=== PATIENT | female | born 1965 | race Caucasian/White ===

== ENCOUNTER 2022-05-21 16:07 | Inpatient (IN) | payer BC, MEDICAID ==
[2022-05-21] MEDS ORDERED: Sodium Chloride 0.9% 10 ML Syringe FLUSH PRN (16:17)
[2022-05-21] MEDS ORDERED: MVI, Adult with Vitamin K 10 ML in Sodium Chloride 0.9% 1,000 ML IV ONE ×2 (16:24)
[2022-05-21] MEDS ORDERED: Pantoprazole 40 MG Vial IVPUSH SCH (16:30)
[2022-05-21] MEDS ORDERED: Thiamine 100 MG in Sodium Chloride 0.9% 100 ML IV SCH (16:30)
[2022-05-21] MEDS ORDERED: Folic Acid 50 MG/10 ML MDV IV SCH (16:30)
[2022-05-21] MEDS ORDERED: Piperacillin/Tazobactam 3.375 GM in Sodium Chloride 0.9% 50 ML IV ONE (17:00)
[2022-05-21] MEDS ORDERED: Lidocaine 1% with EPINEPHrine 1:100,000 50 ML MDV ONE (17:28)
[2022-05-21] MEDS ORDERED: Bupivacaine 0.5% 50 ML MDV ONE (17:28)
[2022-05-21] MEDS ORDERED: fentaNYL 100 MCG/2 ML SDV ONE ×2 (17:34→22:07)
[2022-05-21] MEDS ORDERED: Midazolam 1 MG/ML 2 ML SDV ONE (17:35)
[2022-05-21] MEDS ORDERED: Ondansetron 4 MG/2 ML SDV ONE (17:37)
[2022-05-21] MEDS ORDERED: Propofol 200 MG/20 ML SDV ONE (17:37)
[2022-05-21] MEDS ORDERED: Dexamethasone 4 MG/ML SDV ONE (17:37)
[2022-05-21] MEDS ORDERED: Rocuronium 50 MG/5 ML Vial ONE (17:37)
[2022-05-21] MEDS ORDERED: Succinylcholine 200 MG/10 ML MDV ONE (17:37)
[2022-05-21] MEDS ORDERED: Lidocaine 2% 5 ML SDV ONE (17:38)
[2022-05-21 17:42] LABS: ESTIMATED GFR 53 mL/min (>60)
[2022-05-21] MEDS: Lactated Ringers 1,000 ML IV SCH (17:51)
[2022-05-21 18:17] LABS: VITAMIN D,25-HYDROXY 111.1 ng/mL (30-100)
[2022-05-21] MEDS ORDERED: Phenylephrine 1% 10 MG/ML SDV ONE (19:18)
[2022-05-21] MEDS ORDERED: Meropenem 500 MG SDV ONE (21:09)
[2022-05-21] MEDS ORDERED: Neostigmine Methylsulfate 1 MG/ML 5 ML Syringe ONE (21:23)
[2022-05-21] MEDS ORDERED: Glycopyrrolate 0.2 MG/ML 5 ML MDV ONE (21:23)
[2022-05-21] MEDS ORDERED: Naloxone 0.4 MG/ML SDV IVPUSH PRN (22:33)
[2022-05-21] MEDS: HYDROmorphone/Normal Saline 6 MG/30 ML PCA Vial IV PRN (23:42)
[2022-05-21 23:53] LABS: ESTIMATED GFR 53 mL/min (>60)
[2022-05-22] MEDS: Metoprolol Tartrate 5 MG/5 ML SDV IVPUSH SCH ×4 (00:13→17:46)
[2022-05-22] MEDS ORDERED: Sodium Chloride 0.9% 50 ML ONE (00:27)
[2022-05-22] MEDS ORDERED: Magnesium Sulfate/Water 2 GM in Premix Bag 1 BAG IV ONE (00:28)
[2022-05-22] MEDS ORDERED: Lactated Ringers 500 ML IV SCH (00:30)
[2022-05-22] MEDS: Potassium Chloride 100 ML IV SCH ×2 (00:51→01:56)
[2022-05-22] MEDS: Lactated Ringers 1,000 ML IV SCH (00:53)
[2022-05-22] MEDS ORDERED: Potassium Chloride 10 MEQ in Premix Bag 2 BAG IV SCH (01:00)
[2022-05-22] MEDS ORDERED: Piperacillin/Tazobactam 3.375 GM in Sodium Chloride 0.9% 50 ML IV SCH (01:00)
[2022-05-22] MEDS: Piperacillin/Tazobactam/Dext 3.375 GM in Premix Bag 1 BAG IV SCH ×3 (07:47→20:44)
[2022-05-22] MEDS ORDERED: Sodium Ferric Gluconate Cmplex 125 MG in Sodium Chloride 0.9% 100 ML IV SCH (09:00)
[2022-05-22] MEDS ORDERED: Sodium Chloride 0.9% 50 ML IV ONE (10:09)
[2022-05-22] MEDS ORDERED: Iopamidol 612 MG/ML 100 ML Bottle IV PRN (10:09)
[2022-05-22] MEDS: Enoxaparin 40 MG/0.4 ML Syringe SUBCUT SCH (11:31)
[2022-05-22] MEDS: Sodium Ferric Gluconate Cmplex 125 MG in Sodium Chloride 0.9% 100 ML IV SCH (12:05)
[2022-05-22] MEDS ORDERED: Lactated Ringers 1,000 ML IV ONE (14:34)
[2022-05-22] MEDS: HYDROmorphone/Normal Saline 6 MG/30 ML PCA Vial IV PRN (15:07)
[2022-05-22] MEDS: Acetaminophen 500 MG Tab PO SCH ×2 (15:16→21:32)
[2022-05-22] MEDS: hydrOXYzine HCl 25 MG Tab PO PRN ×2 (15:17→21:32)
[2022-05-22] MEDS ORDERED: MVI, Adult with Vitamin K 10 ML, Folic Acid 1 MG, Thiamine 100 MG in Lactated Ringers 1... IV SCH ×4 (16:00)
[2022-05-22] MEDS ORDERED: Pantoprazole 40 MG Vial IVPUSH SCH (20:00)
[2022-05-23] MEDS: Metoprolol Tartrate 5 MG/5 ML SDV IVPUSH SCH ×3 (00:13→13:55)
[2022-05-23] MEDS: Lactated Ringers 1,000 ML IV SCH (01:41)
[2022-05-23] MEDS: Piperacillin/Tazobactam/Dext 3.375 GM in Premix Bag 1 BAG IV SCH ×4 (02:30→20:15)
[2022-05-23] MEDS: Acetaminophen 500 MG Tab PO SCH ×3 (06:09→22:09)
[2022-05-23] MEDS ORDERED: HYDROmorphone 0.5 MG/0.5 ML Syringe IVPUSH PRN (08:30)
[2022-05-23] MEDS ORDERED: Potassium Chloride 10 MEQ in Premix Bag 1 BAG IV SCH (09:00)
[2022-05-23] MEDS: Dextrose 5%-Lact Ringers w/KCl 1,000 ML IV SCH (09:36)
[2022-05-23] MEDS: Nystatin Topical Powder 15 GM Bottle TOP SCH ×3 (09:43→20:24)
[2022-05-23] MEDS: oxyCODONE 5 MG Tab PO PRN ×3 (09:47→20:23)
[2022-05-23] MEDS: Sodium Ferric Gluconate Cmplex 125 MG in Sodium Chloride 0.9% 100 ML IV SCH (11:10)
[2022-05-23] MEDS: Enoxaparin 40 MG/0.4 ML Syringe SUBCUT SCH (11:15)
[2022-05-23] MEDS ORDERED: LIDOCAINE 1% IV SCH ×2 (13:15→13:17)
[2022-05-23] MEDS ORDERED: POTASSIUM ACETATE IV SCH (13:15)
[2022-05-23] MEDS ORDERED: SODIUM CHLORIDE 0.9% IV SCH ×2 (13:15→13:17)
[2022-05-23] MEDS ORDERED: POTASSIUM CHLORIDE IV SCH (13:17)
[2022-05-23] MEDS: LIDOCAINE 1% IV SCH ×3 (13:30→17:52)
[2022-05-23] MEDS: POTASSIUM CHLORIDE IV SCH ×3 (13:30→17:52)
[2022-05-23] MEDS: SODIUM CHLORIDE 0.9% IV SCH ×3 (13:30→17:52)
[2022-05-23] MEDS ORDERED: Venlafaxine 75 MG Tab PO SCH (16:00)
[2022-05-23] MEDS: Metoprolol Tartrate 25 MG Tab PO SCH (17:03)
[2022-05-23] MEDS: THIAMINE IV SCH ×4 (17:03)
[2022-05-23] MEDS: [UNRECOGNIZED DRUG - OTHER] IV SCH ×4 (17:03)
[2022-05-23] MEDS: MVI IV SCH ×4 (17:03)
[2022-05-23] MEDS: VITAMIN K IV SCH ×4 (17:03)
[2022-05-23] MEDS: FOLIC ACID IV SCH ×4 (17:03)
[2022-05-23] MEDS ORDERED: Cyclobenzaprine 10 MG Tab PO PRN (17:23)
[2022-05-23] MEDS: hydrOXYzine HCl 25 MG Tab PO PRN (20:23)
[2022-05-23] MEDS: Venlafaxine 75 MG Tab PO SCH (20:23)
[2022-05-24] MEDS: Piperacillin/Tazobactam/Dext 3.375 GM in Premix Bag 1 BAG IV SCH ×3 (01:42→14:46)
[2022-05-24] MEDS: Dextrose 5%-Lact Ringers w/KCl 1,000 ML IV SCH (01:45)
[2022-05-24] MEDS: Metoprolol Tartrate 25 MG Tab PO SCH ×2 (04:03→16:19)
[2022-05-24] MEDS: oxyCODONE 5 MG Tab PO PRN ×4 (04:06→21:05)
[2022-05-24] MEDS: Acetaminophen 500 MG Tab PO SCH ×3 (05:47→21:07)
[2022-05-24] MEDS ORDERED: Pantoprazole 40 MG Delayed-Release Granules 1 Packet PO SCH (07:30)
[2022-05-24] MEDS: Pantoprazole 40 MG Tab.CR PO SCH (07:31)
[2022-05-24] MEDS ORDERED: Sodium Phosphate 15 mMole/5 ML SDV IV ONE (08:35)
[2022-05-24] MEDS: Venlafaxine 75 MG Tab PO SCH ×2 (08:47→21:07)
[2022-05-24] MEDS: Nystatin Topical Powder 15 GM Bottle TOP SCH ×3 (08:48→21:07)
[2022-05-24] MEDS ORDERED: Sodium Ferric Gluconate Cmplex 125 MG in Sodium Chloride 0.9% 100 ML IV SCH (09:00)
[2022-05-24] MEDS ORDERED: Sodium Phosphate 30 MMOLE in Sodium Chloride 0.9% 250 ML IV ONE (10:00)
[2022-05-24] MEDS: Enoxaparin 40 MG/0.4 ML Syringe SUBCUT SCH (10:23)
[2022-05-24] MEDS: [UNRECOGNIZED DRUG - OTHER] IV SCH ×4 (15:19)
[2022-05-24] MEDS: FOLIC ACID IV SCH ×4 (15:19)
[2022-05-24] MEDS: VITAMIN K IV SCH ×4 (15:19)
[2022-05-24] MEDS: THIAMINE IV SCH ×4 (15:19)
[2022-05-24] MEDS: MVI IV SCH ×4 (15:19)
[2022-05-24] MEDS: hydrOXYzine HCl 25 MG Tab PO PRN (21:05)
[2022-05-25] MEDS: oxyCODONE 5 MG Tab PO PRN ×4 (04:16→19:25)
[2022-05-25] MEDS: Metoprolol Tartrate 25 MG Tab PO SCH ×2 (04:17→21:12)
[2022-05-25] MEDS: Acetaminophen 500 MG Tab PO SCH ×3 (06:25→21:13)
[2022-05-25] MEDS ORDERED: Bisacodyl 10 MG Supp RECTAL PRN (07:22)
[2022-05-25] MEDS: Pantoprazole 40 MG Tab.CR PO SCH (08:06)
[2022-05-25] MEDS: Venlafaxine 75 MG Tab PO SCH ×2 (09:24→21:12)
[2022-05-25] MEDS: Nystatin Topical Powder 15 GM Bottle TOP SCH ×3 (09:25→21:13)
[2022-05-25] MEDS: Enoxaparin 40 MG/0.4 ML Syringe SUBCUT SCH (11:59)
[2022-05-25] MEDS ORDERED: Magnesium Oxide 400 MG Tab PO ONE (15:00)
[2022-05-25] MEDS: hydrOXYzine HCl 25 MG Tab PO PRN (21:12)
[2022-05-26] MEDS: oxyCODONE 5 MG Tab PO PRN ×2 (00:02→07:21)
[2022-05-26] MEDS: Pantoprazole 40 MG Tab.CR PO SCH (07:21)
[2022-05-26] MEDS: Acetaminophen 500 MG Tab PO SCH (07:21)
[2022-05-26] MEDS: Metoprolol Tartrate 25 MG Tab PO SCH (09:30)
[2022-05-26] MEDS: hydrOXYzine HCl 25 MG Tab PO PRN (09:30)
[2022-05-26] MEDS: Nystatin Topical Powder 15 GM Bottle TOP SCH (09:31)
[2022-05-26] MEDS: Venlafaxine 75 MG Tab PO SCH (09:31)
[2022-05-28 22:07] LABS: VITAMIN E(GAMMA TOCOPHEROL) 1.4 mg/L (0.5-5.5)
== END 2022-05-26 10:00 | disposition home or self-care (01) | DRG 336 ==
LOC: JP.SDS 16:07 → JP.MS 16:18
PROVIDERS: ADMIT Student in an Organized Health Care Education/Training Program; ATTEND Student in an Organized Health Care Education/Training Program
PROC: 0DN80ZZ Release Small Intestine, Open Approach (ICD-10-PCS; principal; 2022-05-21)
PROC: 0DJ08ZZ Inspection of Upper Intestinal Tract, Via Natural or Artificial Opening Endoscopic (ICD-10-PCS; 2022-05-21)
DX: K46.9 Unspecified abdominal hernia without obstruction or gangrene (principal); E87.20 Acidosis, unspecified; K66.0 Peritoneal adhesions (postprocedural) (postinfection); F41.1 Generalized anxiety disorder; I10 Essential (primary) hypertension; Z98.84 Bariatric surgery status; Z98.890 Other specified postprocedural states; Z90.49 Acquired absence of other specified parts of digestive tract; Z90.89 Acquired absence of other organs
CPT/HCPCS: 36415; 74177; 80048; 80053; 82306; 82607; 83550; 83605; 83735; 84075; 84100; 84207; 84425; 84446; 84590; 85025; 85027; A9270-GY; C9113; J0330; J1100; J1170; J1650; J2185; J2250; J2370; J2405; J2543; J2704; J2710; J2916; J3010; J3411; J3475; J3480; J3490; J7030; J7050; J7120; Q9967

== ENCOUNTER 2022-06-13 07:00 | Inpatient (IN) | payer MEDICAID ==
[~2022-06-13 07:00] MED LIST: Bupivacaine 0.5%/EPINEPHrine 1:200,000 50 ML MDV ONE
[2022-06-13 07:44] LABS: ESTIMATED GFR 35 mL/min (>60)
[2022-06-13] MEDS ORDERED: Acetaminophen 500 MG Tab PO ONE (07:45)
[2022-06-13] MEDS ORDERED: fentaNYL 250 MCG/5 ML SDV ONE ×2 (08:05→10:08)
[2022-06-13] MEDS ORDERED: Glycopyrrolate 0.2 MG/ML 5 ML MDV ONE (08:09)
[2022-06-13] MEDS ORDERED: Propofol 200 MG/20 ML SDV ONE (08:09)
[2022-06-13] MEDS ORDERED: Neostigmine Methylsulfate 1 MG/ML 5 ML Syringe ONE (08:09)
[2022-06-13] MEDS ORDERED: Succinylcholine 200 MG/10 ML MDV ONE (08:09)
[2022-06-13] MEDS ORDERED: Dexamethasone 4 MG/ML SDV ONE (08:09)
[2022-06-13] MEDS ORDERED: Ondansetron 4 MG/2 ML SDV ONE (08:09)
[2022-06-13] MEDS ORDERED: Rocuronium 50 MG/5 ML Vial ONE (08:09)
[2022-06-13] MEDS ORDERED: Lactated Ringers 1,000 ML IV SCH ×2 (08:30→13:00)
[2022-06-13] MEDS ORDERED: Heparin Sodium 5,000 Units/ML Vial SUBCUT ONE (08:30)
[2022-06-13] MEDS ORDERED: Meropenem 500 MG SDV ONE (09:15)
[2022-06-13] MEDS ORDERED: Clindamycin Phosphate in D5W 900 MG in Premix Bag 1 BAG IV ONE ×2 (09:30)
[2022-06-13] MEDS ORDERED: Lidocaine 1% 2 ML ONE (09:47)
[2022-06-13] MEDS ORDERED: Labetalol 20 MG/4 ML Syringe ONE (10:35)
[2022-06-13] MEDS ORDERED: Ondansetron 4 MG/2 ML SDV IVPUSH PRN (10:57)
[2022-06-13] MEDS ORDERED: Albuterol 90 MCG/6.7 GM Inhaler INH PRN (11:07)
[2022-06-13] MEDS: oxyCODONE 5 MG Tab PO PRN ×2 (11:56→20:11)
[2022-06-13] MEDS ORDERED: MVI, Adult with Vitamin K 10 ML in Sodium Chloride 0.9% 1,000 ML IV ONE ×2 (12:30)
[2022-06-13] MEDS: Folic Acid 1 MG Tab PO SCH (13:15)
[2022-06-13] MEDS: Acetaminophen 500 MG Tab PO SCH ×2 (13:15→21:45)
[2022-06-13] MEDS: Venlafaxine 75 MG Tab PO SCH (21:45)
[2022-06-13] MEDS: Sulfamethoxazole/Trimethoprim 800-160 MG Tab PO SCH (21:45)
[2022-06-13] MEDS: Thiamine 100 MG Tab PO SCH (21:45)
[2022-06-13] MEDS: Enoxaparin 40 MG/0.4 ML Syringe SUBCUT SCH (21:58)
[2022-06-14] MEDS: oxyCODONE 5 MG Tab PO PRN ×2 (01:24→21:04)
[2022-06-14] MEDS: Acetaminophen 500 MG Tab PO SCH ×3 (05:17→22:04)
[2022-06-14 06:30] LABS: ESTIMATED GFR 53 mL/min (>60)
[2022-06-14] MEDS ORDERED: Lactated Ringers 1,000 ML IV ONE (07:14)
[2022-06-14] MEDS: Potassium Chloride 10 MEQ in Premix Bag 1 BAG IV SCH ×5 (07:26→15:44)
[2022-06-14] MEDS: Magnesium Sulfate/Water 2 GM in Premix Bag 1 BAG IV ONE ×2 (07:26→09:42)
[2022-06-14] MEDS: Metoprolol Tartrate 25 MG Tab PO SCH ×2 (08:41→20:13)
[2022-06-14] MEDS: Venlafaxine 75 MG Tab PO SCH ×2 (08:41→20:13)
[2022-06-14] MEDS: Folic Acid 1 MG Tab PO SCH (08:42)
[2022-06-14] MEDS: Sulfamethoxazole/Trimethoprim 800-160 MG Tab PO SCH ×2 (08:42→20:13)
[2022-06-14] MEDS: hydrOXYzine HCl 25 MG Tab PO PRN ×2 (10:53→21:04)
[2022-06-14] MEDS: Sodium Chloride 0.9% 1,000 ML IV SCH (13:43)
[2022-06-14] MEDS: Thiamine 100 MG Tab PO SCH (20:13)
[2022-06-14] MEDS: Enoxaparin 40 MG/0.4 ML Syringe SUBCUT SCH (20:13)
[2022-06-15] MEDS: Sodium Chloride 0.9% 1,000 ML IV SCH (02:33)
[2022-06-15] MEDS: Acetaminophen 500 MG Tab PO SCH ×2 (05:48→13:47)
[2022-06-15 06:54] LABS: ESTIMATED GFR 75 mL/min (>60)
[2022-06-15] MEDS: Metoprolol Tartrate 25 MG Tab PO SCH (07:44)
[2022-06-15] MEDS: Sulfamethoxazole/Trimethoprim 800-160 MG Tab PO SCH (08:25)
[2022-06-15] MEDS: Folic Acid 1 MG Tab PO SCH (08:25)
[2022-06-15] MEDS: Venlafaxine 75 MG Tab PO SCH (08:25)
[2022-06-15] MEDS ORDERED: Sodium Phosphate 15 mMole/5 ML SDV IV ONE (08:40)
[2022-06-15] MEDS: oxyCODONE 5 MG Tab PO PRN ×2 (08:56→15:56)
[2022-06-15] MEDS: hydrOXYzine HCl 25 MG Tab PO PRN ×2 (08:57→15:56)
[2022-06-15] MEDS ORDERED: Fluconazole 150 MG Tab PO ONE (11:00)
== END 2022-06-15 16:32 | disposition home or self-care (01) | DRG 902 ==
LOC: JP.SDS 07:00 → JP.MS 07:01 → EDSTATUS 10:30 → JP.2SS 10:57
PROVIDERS: ADMIT Student in an Organized Health Care Education/Training Program; ATTEND Student in an Organized Health Care Education/Training Program
PROC: 0JB80ZZ Excision of Abdomen Subcutaneous Tissue and Fascia, Open Approach (ICD-10-PCS; principal; 2022-06-13)
DX: T85.9XXA Unspecified complication of internal prosthetic device, implant and graft, initial encounter (principal); E44.0 Moderate protein-calorie malnutrition; N17.9 Acute kidney failure, unspecified; I10 Essential (primary) hypertension; E66.9 Obesity, unspecified; F41.1 Generalized anxiety disorder; Z90.49 Acquired absence of other specified parts of digestive tract; Z22.322 Carrier or suspected carrier of Methicillin resistant Staphylococcus aureus; Z79.899 Other long term (current) drug therapy; Z88.5 Allergy status to narcotic agent; Z68.34 Body mass index [BMI] 34.0-34.9, adult
CPT/HCPCS: 36415; 80048; 80053; 83735; 84100; 85027; 97605; A9270-GY; J0330; J1100; J1644; J1650; J2020; J2185; J2405; J2704; J2710; J3010; J3475; J3480; J3490; J7030; J7120

== ENCOUNTER 2023-01-25 00:46 | Inpatient (IN) | payer MEDICAID ==
[2023-01-25] MEDS: Dextrose 5%-Lactated Ringers 1,000 ML IV SCH ×3 (01:30→21:33)
[2023-01-25] MEDS: Acetaminophen 325 MG Tab PO PRN ×3 (02:52→23:42)
[2023-01-25] MEDS ORDERED: Fluticasone NASAL Spray 16 GM Bottle NASBOTH PRN (07:27)
[2023-01-25] MEDS ORDERED: Albuterol 6.7 GM Inhaler INH PRN (07:37)
[2023-01-25] MEDS ORDERED: Nystatin Topical Powder 15 GM Bottle TOP PRN (07:38)
[2023-01-25 07:56] LABS: BASOPHILS PERCENT AUTO 0.4 % (0.1-1.3); EOSINOPHILS ABSOLUTE AUTO 0.15 K/uL (0.00-0.40); EOSINOPHILS PERCENT AUTO 3.1 % (0.0-5.4); HEMATOCRIT 40.1 % (34.3-46.0); HEMOGLOBIN 13.9 g/dL (11.2-15.5); IMMATURE GRAN PERCENT AUTO 0.2 % (0.0-0.7); LYMPHOCYTES ABSOLUTE AUTO 0.73 K/uL (0.8-3.3); LYMPHOCYTES PERCENT AUTO 14.9 % (11.4-47.7); MEAN CORPUSCULAR HEMOGLOBIN 34.8 pg (31.6-35.5); MEAN CORPUSCULAR HGB CONC 34.7 g/dL (31.6-35.5); MEAN CORPUSCULAR VOLUME 100.3 fL (81.4-99.0); MONOCYTES PERCENT AUTO 6.1 % (3.3-12.6); NEUTROPHILS ABSOLUTE AUTO 3.69 K/uL (1.0-7.6); NEUTROPHILS PERCENT AUTO 75.3 % (40.0-78.1); PLATELET COUNT,PLT 126 K/uL (130-375); WHITE BLOOD CELL COUNT,WBC 4.9 K/uL (3.2-11.0)
[2023-01-25 08:07] LABS: BASOPHILS ABSOLUTE AUTO 0.02 K/uL (0.00-0.10); IMMATURE GRAN ABSOLUTE AUTO 0.01 K/uL (0.00-0.23)
[2023-01-25] MEDS: Linezolid 600 MG in Premix Bag 1 BAG IV SCH ×2 (08:18→21:40)
[2023-01-25] MEDS: Cetirizine 10 MG Tab PO SCH (08:22)
[2023-01-25] MEDS: Metoprolol Tartrate 25 MG Tab PO SCH ×2 (08:22→21:37)
[2023-01-25] MEDS: Folic Acid 1 MG Tab PO SCH (08:22)
[2023-01-25] MEDS: Venlafaxine 75 MG Tab PO SCH ×2 (08:22→21:37)
[2023-01-25] MEDS: Losartan 50 MG Tab PO SCH (08:22)
[2023-01-25] MEDS: Hydrochlorothiazide 12.5 MG Cap PO SCH (08:22)
[2023-01-25] MEDS: Potassium Chloride 10 MEQ Cap.ER PO SCH (08:23)
[2023-01-25] MEDS ORDERED: MVI, Adult with Vitamin K 10 ML, Thiamine 200 MG, Zinc/Copper/Manganese/Selenium 1 ML i... IV ONE ×4 (09:00)
[2023-01-25 09:26] LABS: ALANINE AMINOTRANSFERASE,ALT 38 U/L (12-78); ALBUMIN 2.7 g/dL (3.4-5.0); ALKALINE PHOSPHATASE 119 U/L (46-116); ANION GAP 14.9 mmol/L (5.0-14.0); ASPARTATE AMNIOTRANSFERASE,AST 50 U/L (15-37); BILIRUBIN TOTAL 0.6 mg/dL (0.2-1.0); BLOOD UREA NITROGEN,BUN 21 mg/dL (7-18); CALCIUM 8.1 mg/dL (8.5-10.1); CARBON DIOXIDE,CO2 26 mmol/L (21-32); CHLORIDE,CL 97 mmol/L (100-108); CREATININE 1.4 mg/dL (0.6-1.0); EST CRCL DRUG DOSING (CG) 35.06 mL/min; ESTIMATED GFR 44 mL/min (>60); FERRITIN 343 ng/ml (8-388); GLUCOSE RANDOM 118 mg/dL (74-106); MAGNESIUM 1.8 mg/dL (1.8-2.4); PHOSPHORUS 5.1 mg/dL (2.5-4.9); POTASSIUM,K 3.9 mmol/L (3.6-5.2); PRO B-TYPE NATRIUR PEPT,BNPPRO 215 pg/mL (5-125); PROTEIN TOTAL,TP 5.5 g/dL (6.4-8.2); SODIUM,NA 134 mmol/L (140-148)
[2023-01-25] MEDS ORDERED: Melatonin 3 MG Tab PO PRN (21:29)
[2023-01-26 04:39] LABS: HEMATOCRIT 35.9 % (34.3-46.0); HEMOGLOBIN 12.3 g/dL (11.2-15.5); MEAN CORPUSCULAR HEMOGLOBIN 34.4 pg (31.6-35.5); MEAN CORPUSCULAR HGB CONC 34.3 g/dL (31.6-35.5); MEAN CORPUSCULAR VOLUME 100.3 fL (81.4-99.0); RED BLOOD CELL COUNT 3.58 M/uL (3.77-5.24); WHITE BLOOD CELL COUNT,WBC 3.3 K/uL (3.2-11.0)
[2023-01-26 05:00] LABS: A/G RATIO 0.9 (1.2-2.2); ALANINE AMINOTRANSFERASE,ALT 31 U/L (12-78); ALBUMIN 2.4 g/dL (3.4-5.0); ALKALINE PHOSPHATASE 91 U/L (46-116); ASPARTATE AMNIOTRANSFERASE,AST 33 U/L (15-37); BILIRUBIN TOTAL 0.6 mg/dL (0.2-1.0); BLOOD UREA NITROGEN,BUN 14 mg/dL (7-18); CALCIUM 7.9 mg/dL (8.5-10.1); CARBON DIOXIDE,CO2 29 mmol/L (21-32); CHLORIDE,CL 101 mmol/L (100-108); CREATININE 0.9 mg/dL (0.6-1.0); EST CRCL DRUG DOSING (CG) 54.55 mL/min; ESTIMATED GFR 75 mL/min (>60); GLUCOSE RANDOM 112 mg/dL (74-106); MAGNESIUM 1.5 mg/dL (1.8-2.4); POTASSIUM,K 3.8 mmol/L (3.6-5.2); PROTEIN TOTAL,TP 5.1 g/dL (6.4-8.2); SODIUM,NA 136 mmol/L (140-148)
[2023-01-26 05:13] LABS: ANION GAP 9.8 mmol/L (5.0-14.0)
[2023-01-26] MEDS ORDERED: Meropenem 500 MG SDV ONE (06:40)
[2023-01-26] MEDS ORDERED: Lidocaine 1% with EPINEPHrine 1:100,000 50 ML MDV ONE (06:40)
[2023-01-26] MEDS ORDERED: Bupivacaine 0.5% 50 ML MDV ONE (06:40)
[2023-01-26] MEDS ORDERED: Glycopyrrolate 0.2 MG/ML 5 ML MDV ONE (07:52)
[2023-01-26] MEDS ORDERED: Neostigmine Methylsulfate 1 MG/ML 5 ML Syringe ONE (07:52)
[2023-01-26] MEDS ORDERED: Dexamethasone 4 MG/ML SDV ONE (07:52)
[2023-01-26] MEDS ORDERED: Succinylcholine 200 MG/10 ML MDV ONE (07:52)
[2023-01-26] MEDS ORDERED: Ondansetron 4 MG/2 ML SDV ONE (07:52)
[2023-01-26] MEDS ORDERED: Propofol 200 MG/20 ML SDV ONE (07:52)
[2023-01-26] MEDS ORDERED: Rocuronium 50 MG/5 ML Vial ONE ×2 (07:52→11:21)
[2023-01-26] MEDS ORDERED: fentaNYL 250 MCG/5 ML SDV ONE (07:52)
[2023-01-26] MEDS: Metoprolol Tartrate 25 MG Tab PO SCH ×2 (08:00→21:10)
[2023-01-26] MEDS ORDERED: Ketamine 500 MG/5 ML MDV IV SCH ×3 (08:00→09:30)
[2023-01-26] MEDS: Dextrose 5%-Lactated Ringers 1,000 ML IV SCH (08:48)
[2023-01-26] MEDS: Linezolid 600 MG in Premix Bag 1 BAG IV SCH ×2 (08:52→21:58)
[2023-01-26] MEDS ORDERED: Ketamine 15 MG in Sodium Chloride 0.9% 19.85 ML IV SCH (09:30)
[2023-01-26] MEDS ORDERED: Ropivacaine 44 ML, dexAMETHasone 8 MG, EPINEPHrine 0.4 MG, Sodium Chloride 0.9% 33.6 ML NERVRT SCH ×4 (09:30)
[2023-01-26] MEDS ORDERED: Naloxone 0.4 MG/ML SDV IVPUSH PRN (10:57)
[2023-01-26] MEDS ORDERED: diphenhydrAMINE 25 MG Cap PO PRN (10:57)
[2023-01-26] MEDS ORDERED: Ondansetron 4 MG/2 ML SDV IVPUSH PRN ×2 (10:57→14:00)
[2023-01-26] MEDS ORDERED: diphenhydrAMINE 50 MG/ML SDV IVPUSH PRN (10:57)
[2023-01-26] MEDS ORDERED: Linezolid 600 MG/300 ML Premix Bag IRR ONE (11:32)
[2023-01-26] MEDS ORDERED: Lactated Ringers 1,000 ML ONE (11:43)
[2023-01-26] MEDS ORDERED: fentaNYL 100 MCG/2 ML SDV ONE (11:54)
[2023-01-26] MEDS ORDERED: Naloxone 0.4 MG/ML SDV IV PRN (12:00)
[2023-01-26] MEDS: HYDROmorphone/Normal Saline 6 MG/30 ML PCA Vial IV PRN ×2 (12:10→18:52)
[2023-01-26] MEDS ORDERED: hydrOXYzine HCL 100 MG/2 ML SDV IM ONE (12:27)
[2023-01-26] MEDS ORDERED: Cyclobenzaprine 10 MG Tab PO PRN (13:02)
[2023-01-26] MEDS: Cetirizine 10 MG Tab PO SCH (13:14)
[2023-01-26] MEDS: Losartan 50 MG Tab PO SCH (13:14)
[2023-01-26] MEDS ORDERED: Dextrose 5%-Lactated Ringers 1,000 ML IV SCH (13:15)
[2023-01-26] MEDS ORDERED: Labetalol 20 MG/4 ML Syringe IVPUSH PRN (14:00)
[2023-01-26] MEDS ORDERED: hydrOXYzine HCL 100 MG/2 ML SDV IM PRN (14:00)
[2023-01-26] MEDS ORDERED: Albuterol/Ipratropium 3.0-0.5 MG/3 ML Neb Soln INH PRN (14:00)
[2023-01-26] MEDS ORDERED: Acetaminophen 500 MG Tab PO PRN (14:00)
[2023-01-26] MEDS ORDERED: Metoclopramide 10 MG/2 ML SDV IVPUSH PRN (14:00)
[2023-01-26] MEDS: Albuterol/Ipratropium 3.0-0.5 MG/3 ML Neb Soln INH SCH ×2 (14:23→21:13)
[2023-01-26] MEDS: Meropenem 500 MG in Sodium Chloride 0.9% 50 ML IV SCH ×2 (14:23→21:11)
[2023-01-26] MEDS: Pantoprazole 40 MG Vial IVPUSH SCH (14:23)
[2023-01-26] MEDS: diphenhydrAMINE 50 MG/ML SDV IVPUSH PRN (15:35)
[2023-01-26] MEDS: MVI, Adult with Vitamin K 10 ML, Thiamine 200 MG, Zinc/Copper/Manganese/Selenium 1 ML i... IV SCH ×4 (15:59)
[2023-01-26] MEDS: Magnesium Sulfate/Water 2 GM in Premix Bag 1 BAG IV SCH ×2 (16:27→23:06)
[2023-01-26] MEDS ORDERED: Lactated Ringers 500 ML IV SCH (16:45)
[2023-01-26] MEDS: Acetaminophen 500 MG Tab PO SCH (17:20)
[2023-01-26] MEDS: Venlafaxine 75 MG Tab PO SCH (19:25)
[2023-01-26] MEDS: Potassium Chloride 10 MEQ Cap.ER PO SCH (19:25)
[2023-01-26] MEDS: Hydrochlorothiazide 12.5 MG Cap PO SCH (19:26)
[2023-01-26] MEDS: Folic Acid 1 MG Tab PO SCH (19:26)
[2023-01-27] MEDS: diphenhydrAMINE 50 MG/ML SDV IVPUSH PRN (00:29)
[2023-01-27] MEDS: Meropenem 500 MG in Sodium Chloride 0.9% 50 ML IV SCH ×4 (01:52→20:05)
[2023-01-27] MEDS: Acetaminophen 500 MG Tab PO SCH ×3 (02:19→18:15)
[2023-01-27] MEDS: Calcium Carbonate 500 MG Tab.Chew PO PRN ×2 (03:57→22:05)
[2023-01-27] MEDS ORDERED: Iopamidol 612 MG/ML 50 ML SDV PO ONE (04:02)
[2023-01-27 04:37] LABS: BASOPHILS PERCENT AUTO 0.1 % (0.1-1.3); HEMATOCRIT 34.2 % (34.3-46.0); HEMOGLOBIN 11.3 g/dL (11.2-15.5); IMMATURE GRAN PERCENT AUTO 0.3 % (0.0-0.7); LYMPHOCYTES ABSOLUTE AUTO 0.55 K/uL (0.8-3.3); LYMPHOCYTES PERCENT AUTO 7.6 % (11.4-47.7); MEAN CORPUSCULAR VOLUME 105.9 fL (81.4-99.0); MONOCYTES ABSOLUTE AUTO 0.48 K/uL (0.20-0.90); MONOCYTES PERCENT AUTO 6.7 % (3.3-12.6); NEUTROPHILS ABSOLUTE AUTO 6.14 K/uL (1.0-7.6); NEUTROPHILS PERCENT AUTO 85.3 % (40.0-78.1); PLATELET COUNT,PLT 115 K/uL (130-375); RED BLOOD CELL COUNT 3.23 M/uL (3.77-5.24); WHITE BLOOD CELL COUNT,WBC 7.2 K/uL (3.2-11.0)
[2023-01-27 04:47] LABS: BASOPHILS ABSOLUTE AUTO 0.01 K/uL (0.00-0.10); IMMATURE GRAN ABSOLUTE AUTO 0.02 K/uL (0.00-0.23)
[2023-01-27] MEDS: Magnesium Sulfate/Water 2 GM in Premix Bag 1 BAG IV SCH (05:04)
[2023-01-27 05:17] LABS: A/G RATIO 0.8 (1.2-2.2); ALANINE AMINOTRANSFERASE,ALT 33 U/L (12-78); ALBUMIN 2.6 g/dL (3.4-5.0); ALKALINE PHOSPHATASE 88 U/L (46-116); ASPARTATE AMNIOTRANSFERASE,AST 43 U/L (15-37); BILIRUBIN TOTAL 0.5 mg/dL (0.2-1.0); BLOOD UREA NITROGEN,BUN 10 mg/dL (7-18); CALCIUM 8.1 mg/dL (8.5-10.1); CARBON DIOXIDE,CO2 27 mmol/L (21-32); CHLORIDE,CL 99 mmol/L (100-108); CREATININE 1.2 mg/dL (0.6-1.0); EST CRCL DRUG DOSING (CG) 40.91 mL/min; ESTIMATED GFR 53 mL/min (>60); FERRITIN 236 ng/ml (8-388); GLUCOSE RANDOM 127 mg/dL (74-106); MAGNESIUM 2.5 mg/dL (1.8-2.4); PHOSPHORUS 3.8 mg/dL (2.5-4.9); POTASSIUM,K 3.5 mmol/L (3.6-5.2); PRO B-TYPE NATRIUR PEPT,BNPPRO 130 pg/mL (5-125); PROTEIN TOTAL,TP 5.7 g/dL (6.4-8.2); SODIUM,NA 134 mmol/L (140-148)
[2023-01-27 06:07] LABS: ANION GAP 11.5 mmol/L (5.0-14.0)
[2023-01-27] MEDS: Albuterol/Ipratropium 3.0-0.5 MG/3 ML Neb Soln INH SCH ×4 (06:59→21:39)
[2023-01-27] MEDS: Potassium Chloride 20 MEQ, Lidocaine 1% 2 ML in Sodium Chloride 0.9% 100 ML IV SCH ×3 (08:38→13:02)
[2023-01-27] MEDS: Celecoxib 200 MG Cap PO SCH ×2 (08:48→21:33)
[2023-01-27] MEDS: Losartan 50 MG Tab PO SCH (08:49)
[2023-01-27] MEDS: Cetirizine 10 MG Tab PO SCH (08:50)
[2023-01-27] MEDS: Metoprolol Tartrate 25 MG Tab PO SCH ×2 (08:50→21:36)
[2023-01-27] MEDS ORDERED: Hydrochlorothiazide 12.5 MG Cap PO SCH (10:00)
[2023-01-27] MEDS: Linezolid 600 MG in Premix Bag 1 BAG IV SCH ×2 (10:05→21:37)
[2023-01-27] MEDS ORDERED: Lactated Ringers 500 ML IV SCH (11:00)
[2023-01-27] MEDS: Venlafaxine 75 MG Tab PO SCH ×2 (11:27→21:34)
[2023-01-27] MEDS: Folic Acid 1 MG Tab PO SCH (11:27)
[2023-01-27] MEDS ORDERED: Lactated Ringers 500 ML IV ONE (11:30)
[2023-01-27] MEDS: Dextrose 5%-Lactated Ringers 1,000 ML IV SCH (12:00)
[2023-01-27] MEDS: Potassium Chloride 10 MEQ Cap.ER PO SCH (13:01)
[2023-01-27] MEDS: Pantoprazole 40 MG Vial IVPUSH SCH (13:19)
[2023-01-27] MEDS: MVI, Adult with Vitamin K 10 ML, Thiamine 200 MG, Zinc/Copper/Manganese/Selenium 1 ML i... IV SCH ×4 (16:38)
[2023-01-28] MEDS: Acetaminophen 500 MG Tab PO SCH ×3 (02:47→17:23)
[2023-01-28] MEDS: Meropenem 500 MG in Sodium Chloride 0.9% 50 ML IV SCH ×4 (02:59→20:27)
[2023-01-28 04:30] LABS: HEMATOCRIT 24.2 % (34.3-46.0); HEMOGLOBIN 8.1 g/dL (11.2-15.5); MEAN CORPUSCULAR HEMOGLOBIN 34.6 pg (31.6-35.5); MEAN CORPUSCULAR HGB CONC 33.5 g/dL (31.6-35.5); MEAN CORPUSCULAR VOLUME 103.4 fL (81.4-99.0); RED BLOOD CELL COUNT 2.34 M/uL (3.77-5.24); WHITE BLOOD CELL COUNT,WBC 6.4 K/uL (3.2-11.0)
[2023-01-28] MEDS: HYDROmorphone/Normal Saline 6 MG/30 ML PCA Vial IV PRN (04:42)
[2023-01-28] MEDS: Dextrose 5%-Lactated Ringers 1,000 ML IV SCH ×2 (04:47→20:30)
[2023-01-28 05:05] LABS: A/G RATIO 0.9 (1.2-2.2); ALANINE AMINOTRANSFERASE,ALT 34 U/L (12-78); ALBUMIN 2.3 g/dL (3.4-5.0); ALKALINE PHOSPHATASE 77 U/L (46-116); ASPARTATE AMNIOTRANSFERASE,AST 62 U/L (15-37); BILIRUBIN TOTAL 0.5 mg/dL (0.2-1.0); BLOOD UREA NITROGEN,BUN 11 mg/dL (7-18); CALCIUM 8.1 mg/dL (8.5-10.1); CARBON DIOXIDE,CO2 28 mmol/L (21-32); CHLORIDE,CL 99 mmol/L (100-108); CREATININE 1.3 mg/dL (0.6-1.0); EST CRCL DRUG DOSING (CG) 37.43 mL/min; ESTIMATED GFR 48 mL/min (>60); GLUCOSE RANDOM 100 mg/dL (74-106); PHOSPHORUS 4.1 mg/dL (2.5-4.9); POTASSIUM,K 4.7 mmol/L (3.6-5.2); PRO B-TYPE NATRIUR PEPT,BNPPRO 87 pg/mL (5-125); PROTEIN TOTAL,TP 4.9 g/dL (6.4-8.2); SODIUM,NA 132 mmol/L (140-148)
[2023-01-28 05:16] LABS: ANION GAP 9.7 mmol/L (5.0-14.0)
[2023-01-28] MEDS: Albuterol/Ipratropium 3.0-0.5 MG/3 ML Neb Soln INH SCH ×4 (07:23→20:55)
[2023-01-28] MEDS: Potassium Chloride 10 MEQ Cap.ER PO SCH (08:35)
[2023-01-28] MEDS: Bisacodyl 5 MG Tab PO SCH ×2 (08:35→20:46)
[2023-01-28] MEDS: Docusate Sodium 100 MG Cap PO SCH ×2 (08:35→20:45)
[2023-01-28] MEDS ORDERED: Cyanocobalamin (Vitamin B12) 1,000 MCG/ML SDV IM ONE (09:00)
[2023-01-28] MEDS: Folic Acid 1 MG Tab PO SCH (10:46)
[2023-01-28] MEDS: Metoprolol Tartrate 25 MG Tab PO SCH ×2 (10:47→20:49)
[2023-01-28] MEDS: Venlafaxine 75 MG Tab PO SCH ×2 (10:50→20:46)
[2023-01-28] MEDS: Celecoxib 200 MG Cap PO SCH (10:50)
[2023-01-28] MEDS: Cetirizine 10 MG Tab PO SCH (10:51)
[2023-01-28] MEDS: Linezolid 600 MG in Premix Bag 1 BAG IV SCH ×2 (10:53→20:44)
[2023-01-28] MEDS ORDERED: Sodium Chloride 0.9% 10 ML Syringe FLUSH ONE (13:46)
[2023-01-28] MEDS ORDERED: Sodium Chloride 0.9% 50 ML IV SCH (14:00)
[2023-01-28] MEDS ORDERED: Iopamidol 612 MG/ML 100 ML Bottle IV SCH (14:00)
[2023-01-28] MEDS: Pantoprazole 40 MG Tab.CR PO SCH (17:23)
[2023-01-28 19:14] LABS: HEMOGLOBIN 9.2 g/dL (11.2-15.5); MEAN CORPUSCULAR HEMOGLOBIN 33.9 pg (31.6-35.5); MEAN CORPUSCULAR HGB CONC 32.9 g/dL (31.6-35.5); MEAN CORPUSCULAR VOLUME 103.3 fL (81.4-99.0); RED BLOOD CELL COUNT 2.71 M/uL (3.77-5.24); WHITE BLOOD CELL COUNT,WBC 5.6 K/uL (3.2-11.0)
[2023-01-29] MEDS: Acetaminophen 500 MG Tab PO SCH ×3 (02:11→17:20)
[2023-01-29] MEDS: Meropenem 500 MG in Sodium Chloride 0.9% 50 ML IV SCH ×4 (02:23→20:13)
[2023-01-29 04:36] LABS: HEMATOCRIT 24.7 % (34.3-46.0); HEMOGLOBIN 8.4 g/dL (11.2-15.5); MEAN CORPUSCULAR HEMOGLOBIN 34.3 pg (31.6-35.5); MEAN CORPUSCULAR VOLUME 100.8 fL (81.4-99.0); RED BLOOD CELL COUNT 2.45 M/uL (3.77-5.24); WHITE BLOOD CELL COUNT,WBC 4.9 K/uL (3.2-11.0)
[2023-01-29 05:03] LABS: ALANINE AMINOTRANSFERASE,ALT 35 U/L (12-78); ALBUMIN 2.1 g/dL (3.4-5.0); ALKALINE PHOSPHATASE 79 U/L (46-116); ASPARTATE AMNIOTRANSFERASE,AST 65 U/L (15-37); BILIRUBIN TOTAL 0.7 mg/dL (0.2-1.0); BLOOD UREA NITROGEN,BUN 11 mg/dL (7-18); CALCIUM 8.2 mg/dL (8.5-10.1); CARBON DIOXIDE,CO2 29 mmol/L (21-32); CHLORIDE,CL 102 mmol/L (100-108); CREATININE 0.9 mg/dL (0.6-1.0); EST CRCL DRUG DOSING (CG) 54.07 mL/min; ESTIMATED GFR 75 mL/min (>60); GLUCOSE RANDOM 90 mg/dL (74-106); PHOSPHORUS 4.5 mg/dL (2.5-4.9); POTASSIUM,K 4.7 mmol/L (3.6-5.2); PRO B-TYPE NATRIUR PEPT,BNPPRO 287 pg/mL (5-125); PROTEIN TOTAL,TP 4.9 g/dL (6.4-8.2); SODIUM,NA 135 mmol/L (140-148)
[2023-01-29 05:05] LABS: A/G RATIO 0.8 (1.2-2.2); ANION GAP 8.7 mmol/L (5.0-14.0)
[2023-01-29] MEDS: HYDROmorphone/Normal Saline 6 MG/30 ML PCA Vial IV PRN (05:20)
[2023-01-29] MEDS ORDERED: Meropenem 500 MG SDV ONE (06:26)
[2023-01-29] MEDS ORDERED: Bupivacaine 0.5% 50 ML MDV ONE (06:26)
[2023-01-29] MEDS ORDERED: Lidocaine 1% with EPINEPHrine 1:100,000 50 ML MDV ONE (06:27)
[2023-01-29] MEDS: Dextrose 5%-Lactated Ringers 1,000 ML IV SCH ×2 (07:15→22:29)
[2023-01-29] MEDS: Albuterol/Ipratropium 3.0-0.5 MG/3 ML Neb Soln INH SCH ×4 (07:20→22:09)
[2023-01-29] MEDS ORDERED: Ropivacaine 44 ML, dexAMETHasone 8 MG, EPINEPHrine 0.4 MG, Sodium Chloride 0.9% 33.6 ML NERVRT SCH ×4 (08:00)
[2023-01-29] MEDS: Potassium Chloride 10 MEQ Cap.ER PO SCH (08:13)
[2023-01-29] MEDS: Metoprolol Tartrate 25 MG Tab PO SCH ×2 (08:14→19:59)
[2023-01-29] MEDS: Bisacodyl 5 MG Tab PO SCH ×2 (08:17→22:12)
[2023-01-29] MEDS: Docusate Sodium 100 MG Cap PO SCH ×2 (08:18→22:13)
[2023-01-29] MEDS: Cetirizine 10 MG Tab PO SCH (08:18)
[2023-01-29] MEDS: Venlafaxine 75 MG Tab PO SCH ×2 (08:18→22:13)
[2023-01-29] MEDS: Folic Acid 1 MG Tab PO SCH (08:19)
[2023-01-29] MEDS ORDERED: Coagulation Factor VIIa Recombinant (per MCG) 2 MG Vial IVPUSH ONE (08:45)
[2023-01-29] MEDS ORDERED: Tamsulosin 0.4 MG Cap.ER PO ONE (09:00)
[2023-01-29] MEDS: Linezolid 600 MG in Premix Bag 1 BAG IV SCH ×2 (09:06→22:13)
[2023-01-29] MEDS: Pantoprazole 40 MG Tab.CR PO SCH (15:48)
[2023-01-29] MEDS: Tamsulosin 0.4 MG Cap.ER PO SCH (22:13)
[2023-01-30] MEDS: HYDROmorphone/Normal Saline 6 MG/30 ML PCA Vial IV PRN ×2 (00:41→20:09)
[2023-01-30] MEDS: Acetaminophen 500 MG Tab PO SCH ×3 (02:32→18:08)
[2023-01-30] MEDS: Meropenem 500 MG in Sodium Chloride 0.9% 50 ML IV SCH ×3 (02:33→13:36)
[2023-01-30] MEDS ORDERED: Sodium Chloride 0.9% 50 ML IV STA (04:14)
[2023-01-30] MEDS ORDERED: Iopamidol 612 MG/ML 100 ML Bottle IV STA (04:14)
[2023-01-30] MEDS ORDERED: Sodium Chloride 0.9% 10 ML Syringe FLUSH STA (04:15)
[2023-01-30 04:38] LABS: BASOPHILS PERCENT AUTO 0.2 % (0.1-1.3); EOSINOPHILS ABSOLUTE AUTO 0.22 K/uL (0.00-0.40); EOSINOPHILS PERCENT AUTO 5.1 % (0.0-5.4); HEMATOCRIT 27.9 % (34.3-46.0); HEMOGLOBIN 9.7 g/dL (11.2-15.5); IMMATURE GRAN ABSOLUTE AUTO 0.06 K/uL (0.00-0.23); IMMATURE GRAN PERCENT AUTO 1.4 % (0.0-0.7); LYMPHOCYTES ABSOLUTE AUTO 0.86 K/uL (0.8-3.3); MEAN CORPUSCULAR HEMOGLOBIN 33.7 pg (31.6-35.5); MEAN CORPUSCULAR HGB CONC 34.8 g/dL (31.6-35.5); MEAN CORPUSCULAR VOLUME 96.9 fL (81.4-99.0); MONOCYTES ABSOLUTE AUTO 0.58 K/uL (0.20-0.90); MONOCYTES PERCENT AUTO 13.5 % (3.3-12.6); NEUTROPHILS ABSOLUTE AUTO 2.56 K/uL (1.0-7.6); NEUTROPHILS PERCENT AUTO 59.8 % (40.0-78.1); PLATELET COUNT,PLT 142 K/uL (130-375); RED BLOOD CELL COUNT 2.88 M/uL (3.77-5.24); WHITE BLOOD CELL COUNT,WBC 4.3 K/uL (3.2-11.0)
[2023-01-30 04:58] LABS: BASOPHILS ABSOLUTE AUTO 0.01 K/uL (0.00-0.10)
[2023-01-30 05:04] LABS: A/G RATIO 0.6 (1.2-2.2); ALANINE AMINOTRANSFERASE,ALT 33 U/L (12-78); ALKALINE PHOSPHATASE 82 U/L (46-116); BLOOD UREA NITROGEN,BUN 10 mg/dL (7-18); CALCIUM 8.3 mg/dL (8.5-10.1); CARBON DIOXIDE,CO2 28 mmol/L (21-32); CHLORIDE,CL 102 mmol/L (100-108); CREATININE 0.8 mg/dL (0.6-1.0); EST CRCL DRUG DOSING (CG) 60.83 mL/min; ESTIMATED GFR 86 mL/min (>60); GLUCOSE RANDOM 102 mg/dL (74-106); MAGNESIUM 1.7 mg/dL (1.8-2.4); PHOSPHORUS 4.3 mg/dL (2.5-4.9); POTASSIUM,K 4.3 mmol/L (3.6-5.2); PROTEIN TOTAL,TP 5.2 g/dL (6.4-8.2); SODIUM,NA 137 mmol/L (140-148)
[2023-01-30 05:30] LABS: ANION GAP 11.3 mmol/L (5.0-14.0); ASPARTATE AMNIOTRANSFERASE,AST 57 U/L (15-37)
[2023-01-30] MEDS: Albuterol/Ipratropium 3.0-0.5 MG/3 ML Neb Soln INH SCH ×4 (07:26→22:47)
[2023-01-30] MEDS ORDERED: Ropivacaine 44 ML, dexAMETHasone 8 MG, EPINEPHrine 0.4 MG, Sodium Chloride 0.9% 33.6 ML NERVRT SCH ×4 (07:30)
[2023-01-30] MEDS: Linezolid 600 MG in Premix Bag 1 BAG IV SCH (08:36)
[2023-01-30] MEDS ORDERED: Midazolam 1 MG/ML 2 ML SDV ONE (08:52)
[2023-01-30] MEDS ORDERED: fentaNYL 100 MCG/2 ML SDV ONE (08:52)
[2023-01-30] MEDS ORDERED: Propofol 200 MG/20 ML SDV ONE ×2 (08:52→11:38)
[2023-01-30] MEDS: Bisacodyl 5 MG Tab PO SCH ×2 (09:59→20:19)
[2023-01-30] MEDS: Cetirizine 10 MG Tab PO SCH (09:59)
[2023-01-30] MEDS: Docusate Sodium 100 MG Cap PO SCH ×2 (09:59→20:19)
[2023-01-30] MEDS: Folic Acid 1 MG Tab PO SCH (09:59)
[2023-01-30] MEDS: Metoprolol Tartrate 25 MG Tab PO SCH ×2 (10:38→20:20)
[2023-01-30] MEDS: Venlafaxine 75 MG Tab PO SCH ×2 (10:39→20:20)
[2023-01-30] MEDS ORDERED: Bupivacaine 0.5% 50 ML MDV ONE (10:57)
[2023-01-30] MEDS ORDERED: Lidocaine 1% with EPINEPHrine 1:100,000 50 ML MDV ONE (10:57)
[2023-01-30] MEDS ORDERED: Meropenem 500 MG SDV ONE (10:57)
[2023-01-30] MEDS ORDERED: Lactated Ringers 1,000 ML ONE (11:29)
[2023-01-30] MEDS: Potassium Chloride 10 MEQ Cap.ER PO SCH (11:49)
[2023-01-30] MEDS ORDERED: Linezolid 600 MG/300 ML Premix Bag IRR ONE (11:51)
[2023-01-30] MEDS ORDERED: Dextrose 5%-Lactated Ringers 1,000 ML IV SCH (14:15)
[2023-01-30] MEDS: Pantoprazole 40 MG Tab.CR PO SCH (16:22)
[2023-01-30] MEDS: Doxycycline 100 MG in Sodium Chloride 0.9% 100 ML IV SCH (16:22)
[2023-01-30] MEDS: Levofloxacin/Dextrose 5%-Water 500 MG in Premix Bag 1 BAG IV SCH (18:08)
[2023-01-30] MEDS: Tamsulosin 0.4 MG Cap.ER PO SCH (20:20)
[2023-01-31 04:37] LABS: BASOPHILS PERCENT AUTO 0.2 % (0.1-1.3); EOSINOPHILS PERCENT AUTO 0.5 % (0.0-5.4); HEMATOCRIT 29.2 % (34.3-46.0); IMMATURE GRAN ABSOLUTE AUTO 0.03 K/uL (0.00-0.23); IMMATURE GRAN PERCENT AUTO 0.7 % (0.0-0.7); LYMPHOCYTES ABSOLUTE AUTO 0.41 K/uL (0.8-3.3); LYMPHOCYTES PERCENT AUTO 9.8 % (11.4-47.7); MEAN CORPUSCULAR HEMOGLOBIN 33.6 pg (31.6-35.5); MEAN CORPUSCULAR HGB CONC 34.2 g/dL (31.6-35.5); MONOCYTES ABSOLUTE AUTO 0.48 K/uL (0.20-0.90); MONOCYTES PERCENT AUTO 11.5 % (3.3-12.6); NEUTROPHILS ABSOLUTE AUTO 3.24 K/uL (1.0-7.6); NEUTROPHILS PERCENT AUTO 77.3 % (40.0-78.1); PLATELET COUNT,PLT 157 K/uL (130-375); RED BLOOD CELL COUNT 2.98 M/uL (3.77-5.24); WHITE BLOOD CELL COUNT,WBC 4.2 K/uL (3.2-11.0)
[2023-01-31] MEDS: Doxycycline 100 MG in Sodium Chloride 0.9% 100 ML IV SCH ×2 (04:41→16:49)
[2023-01-31 04:43] LABS: BASOPHILS ABSOLUTE AUTO 0.01 K/uL (0.00-0.10); EOSINOPHILS ABSOLUTE AUTO 0.02 K/uL (0.00-0.40)
[2023-01-31] MEDS: Acetaminophen 500 MG Tab PO SCH ×3 (04:50→18:04)
[2023-01-31 04:58] LABS: A/G RATIO 0.7 (1.2-2.2); ALANINE AMINOTRANSFERASE,ALT 33 U/L (12-78); ALBUMIN 2.2 g/dL (3.4-5.0); ALKALINE PHOSPHATASE 87 U/L (46-116); ASPARTATE AMNIOTRANSFERASE,AST 37 U/L (15-37); BLOOD UREA NITROGEN,BUN 8 mg/dL (7-18); CALCIUM 8.8 mg/dL (8.5-10.1); CARBON DIOXIDE,CO2 28 mmol/L (21-32); CHLORIDE,CL 103 mmol/L (100-108); CREATININE 0.8 mg/dL (0.6-1.0); EST CRCL DRUG DOSING (CG) 60.83 mL/min; ESTIMATED GFR 86 mL/min (>60); GLUCOSE RANDOM 115 mg/dL (74-106); MAGNESIUM 1.6 mg/dL (1.8-2.4); PHOSPHORUS 4.5 mg/dL (2.5-4.9); POTASSIUM,K 4.2 mmol/L (3.6-5.2); PROTEIN TOTAL,TP 5.5 g/dL (6.4-8.2); SODIUM,NA 137 mmol/L (140-148)
[2023-01-31 05:10] LABS: ANION GAP 10.2 mmol/L (5.0-14.0)
[2023-01-31] MEDS: tiZANidine 2 MG Tab PO PRN ×2 (06:16→21:22)
[2023-01-31] MEDS: Albuterol/Ipratropium 3.0-0.5 MG/3 ML Neb Soln INH SCH ×4 (06:57→20:54)
[2023-01-31] MEDS: Metoprolol Tartrate 25 MG Tab PO SCH ×2 (08:22→20:57)
[2023-01-31] MEDS: Docusate Sodium 100 MG Cap PO SCH ×2 (08:22→20:56)
[2023-01-31] MEDS: Cetirizine 10 MG Tab PO SCH (08:22)
[2023-01-31] MEDS: Venlafaxine 75 MG Tab PO SCH ×2 (08:23→20:57)
[2023-01-31] MEDS: Potassium Chloride 10 MEQ Cap.ER PO SCH (08:23)
[2023-01-31] MEDS: Bisacodyl 5 MG Tab PO SCH ×2 (08:23→20:56)
[2023-01-31] MEDS: Folic Acid 1 MG Tab PO SCH (08:23)
[2023-01-31] MEDS: Magnesium Oxide 400 MG Tab PO SCH ×2 (08:28→20:58)
[2023-01-31] MEDS: Pantoprazole 40 MG Tab.CR PO SCH (16:51)
[2023-01-31] MEDS: Levofloxacin/Dextrose 5%-Water 500 MG in Premix Bag 1 BAG IV SCH (18:04)
[2023-01-31] MEDS: HYDROmorphone/Normal Saline 6 MG/30 ML PCA Vial IV PRN (18:42)
[2023-01-31] MEDS: Tamsulosin 0.4 MG Cap.ER PO SCH (20:58)
[2023-02-01] MEDS: Acetaminophen 500 MG Tab PO SCH ×3 (02:05→17:47)
[2023-02-01] MEDS: Doxycycline 100 MG in Sodium Chloride 0.9% 100 ML IV SCH ×2 (04:20→16:06)
[2023-02-01 04:49] LABS: MEAN CORPUSCULAR HEMOGLOBIN 34.1 pg (31.6-35.5); MEAN CORPUSCULAR HGB CONC 34.5 g/dL (31.6-35.5); RED BLOOD CELL COUNT 2.93 M/uL (3.77-5.24); WHITE BLOOD CELL COUNT,WBC 5.1 K/uL (3.2-11.0)
[2023-02-01 05:11] LABS: A/G RATIO 0.7 (1.2-2.2); ALANINE AMINOTRANSFERASE,ALT 30 U/L (12-78); ALBUMIN 2.3 g/dL (3.4-5.0); ALKALINE PHOSPHATASE 83 U/L (46-116); ANION GAP 6.6 mmol/L (5.0-14.0); ASPARTATE AMNIOTRANSFERASE,AST 30 U/L (15-37); BILIRUBIN TOTAL 1.1 mg/dL (0.2-1.0); BLOOD UREA NITROGEN,BUN 14 mg/dL (7-18); CALCIUM 8.3 mg/dL (8.5-10.1); CARBON DIOXIDE,CO2 28 mmol/L (21-32); CHLORIDE,CL 105 mmol/L (100-108); CREATININE 0.8 mg/dL (0.6-1.0); EST CRCL DRUG DOSING (CG) 60.83 mL/min; ESTIMATED GFR 86 mL/min (>60); GLUCOSE RANDOM 89 mg/dL (74-106); MAGNESIUM 1.6 mg/dL (1.8-2.4); POTASSIUM,K 3.7 mmol/L (3.6-5.2); PRO B-TYPE NATRIUR PEPT,BNPPRO 1022 pg/mL (5-125); PROTEIN TOTAL,TP 5.4 g/dL (6.4-8.2); SODIUM,NA 140 mmol/L (140-148)
[2023-02-01] MEDS: Albuterol/Ipratropium 3.0-0.5 MG/3 ML Neb Soln INH SCH ×4 (06:57→20:22)
[2023-02-01] MEDS ORDERED: Sodium Chloride 0.9% 10 ML Syringe IV SCH (07:30)
[2023-02-01] MEDS: oxyCODONE 5 MG Tab PO PRN ×3 (08:19→21:36)
[2023-02-01] MEDS: Potassium Chloride 10 MEQ Cap.ER PO SCH (08:20)
[2023-02-01] MEDS: Venlafaxine 75 MG Tab PO SCH ×2 (08:21→20:14)
[2023-02-01] MEDS: Folic Acid 1 MG Tab PO SCH (08:21)
[2023-02-01] MEDS: Bisacodyl 5 MG Tab PO SCH ×2 (08:21→20:13)
[2023-02-01] MEDS: Cetirizine 10 MG Tab PO SCH (08:22)
[2023-02-01] MEDS: Magnesium Oxide 400 MG Tab PO SCH ×2 (08:22→20:14)
[2023-02-01] MEDS: Docusate Sodium 100 MG Cap PO SCH ×2 (08:26→20:13)
[2023-02-01] MEDS: Metoprolol Tartrate 25 MG Tab PO SCH ×2 (08:26→20:13)
[2023-02-01] MEDS: Ibuprofen 600 MG Tab PO SCH ×3 (10:18→21:36)
[2023-02-01] MEDS: Pantoprazole 40 MG Tab.CR PO SCH (16:06)
[2023-02-01] MEDS: Levofloxacin/Dextrose 5%-Water 500 MG in Premix Bag 1 BAG IV SCH (17:48)
[2023-02-01] MEDS: Tamsulosin 0.4 MG Cap.ER PO SCH (20:14)
[2023-02-02] MEDS: tiZANidine 2 MG Tab PO PRN (00:13)
[2023-02-02] MEDS: Acetaminophen 500 MG Tab PO SCH ×2 (03:12→09:29)
[2023-02-02] MEDS: Doxycycline 100 MG in Sodium Chloride 0.9% 100 ML IV SCH (03:12)
[2023-02-02] MEDS: Ibuprofen 600 MG Tab PO SCH ×2 (03:19→09:27)
[2023-02-02] MEDS: Albuterol/Ipratropium 3.0-0.5 MG/3 ML Neb Soln INH SCH (07:04)
[2023-02-02] MEDS: oxyCODONE 5 MG Tab PO PRN (07:49)
[2023-02-02] MEDS: Potassium Chloride 10 MEQ Cap.ER PO SCH (09:27)
[2023-02-02] MEDS: Venlafaxine 75 MG Tab PO SCH (09:27)
[2023-02-02] MEDS: Folic Acid 1 MG Tab PO SCH (09:27)
[2023-02-02] MEDS: Bisacodyl 5 MG Tab PO SCH (09:28)
[2023-02-02] MEDS: Docusate Sodium 100 MG Cap PO SCH (09:28)
[2023-02-02] MEDS: Metoprolol Tartrate 25 MG Tab PO SCH (09:28)
[2023-02-02] MEDS: Cetirizine 10 MG Tab PO SCH (09:29)
[2023-02-02] MEDS: Magnesium Oxide 400 MG Tab PO SCH (09:29)
== END 2023-02-02 09:45 | disposition home or self-care (01) | DRG 908 ==
LOC: JP.ICU 00:46
PROVIDERS: ADMIT Surgery; ATTEND Surgery
PROC: 0DPW0JZ Removal of Synthetic Substitute from Peritoneum, Open Approach (ICD-10-PCS; principal; 2023-01-25)
PROC: 0DB80ZZ Excision of Small Intestine, Open Approach (ICD-10-PCS; 2023-01-25)
PROC: 0WUF0JZ Supplement Abdominal Wall with Synthetic Substitute, Open Approach (ICD-10-PCS; 2023-01-25)
PROC: 0T9B70Z Drainage of Bladder with Drainage Device, Via Natural or Artificial Opening (ICD-10-PCS; 2023-01-25)
DX: T85.79XA Infection and inflammatory reaction due to other internal prosthetic devices, implants and grafts, initial encounter (principal); I47.1 Supraventricular tachycardia; L02.211 Cutaneous abscess of abdominal wall; F32.A Depression, unspecified; I10 Essential (primary) hypertension; F41.1 Generalized anxiety disorder; K21.9 Gastro-esophageal reflux disease without esophagitis; E66.01 Morbid (severe) obesity due to excess calories; E66.9 Obesity, unspecified; D50.0 Iron deficiency anemia secondary to blood loss (chronic); B95.62 Methicillin resistant Staphylococcus aureus infection as the cause of diseases classified elsewhere; E83.42 Hypomagnesemia; E87.6 Hypokalemia; Z88.5 Allergy status to narcotic agent; Z86.16 Personal history of COVID-19; Z88.8 Allergy status to other drugs, medicaments and biological substances; Z79.899 Other long term (current) drug therapy; Z90.49 Acquired absence of other specified parts of digestive tract; Z98.890 Other specified postprocedural states
CPT/HCPCS: 36415; 36430; 51702; 74177; 74240; 74240-26; 80053; 82728; 83735; 83880; 84100; 84145; 85018; 85025; 85027; 86850; 86900; 86901; 86920; 86922; 87070; 87075; 87077; 87186; 87205; 88305; 88307; 93005; 93010; 94640; 99222; 99231; 99232; A9270-GY; C9113; J0131; J0171; J0330; J1100; J1170; J1200; J1956; J2020; J2185; J2250; J2405; J2704; J2710; J2795; J3010; J3410; J3411; J3420; J3475; J3480; J3490; J7120; J7121; J7189; J7620; P9016; Q9967